=== PATIENT | male | born 1965 | race Caucasian/White ===

== ENCOUNTER → 2017-06-07 | Outpatient (CLI) | payer BC ==
--- NOTE | 2017-06-07 11:31 | Diagnostic Imaging Report ---
TECHNIQUE: Magnetic resonance imaging of the RIGHT SHOULDER was performed WITHOUT injected contrast. COMPARISON: None available. HISTORY: Right shoulder pain FINDINGS: MUSCLES AND TENDONS: Rotator Cuff: Tendons: Supraspinatus: Intact Infraspinatus: Intact Teres Minor: Intact Subscapularis: Intact Muscles: No focal muscle atrophy. Biceps Tendon: The long head of the biceps tendon is intact and within the intertubercular groove. GLENOHUMERAL JOINT: Glenoid Labrum: Superior and posterior labral fraying. Articular Cartilage: Partial thickness cartilage loss ACROMION: Mild hypertrophic degenerative changes of the acromioclavicular joint. The acromion is unremarkable. BONE: No specific evidence of a focal or infiltrative bone marrow replacing abnormality. No acute fracture. SOFT TISSUES: 1.8 cm subcutaneous cyst anterior superior shoulder. IMPRESSION: Intact rotator cuff without tear. Superior and posterior labral fraying. Signed by: Dr. Gumaro Navarrete M.D. on 06/07/2017 11:27 AM
== END ==
LOC: MRI 09:53
PROVIDERS: ATTEND Internal Medicine
DX: M75.101 Unspecified rotator cuff tear or rupture of right shoulder, not specified as traumatic (principal)

== ENCOUNTER → 2018-04-06 | Outpatient (CLI) | payer BC ==
--- NOTE | 2018-04-09 10:15 | Diagnostic Imaging Report ---
TECHNIQUE: Magnetic resonance imaging of the LEFT HAND and WRIST were separately performed WITHOUT injected contrast. HISTORY: Pain, shooting pain, hands to elbows for months COMPARISON: None available FINDINGS: HAND: Bones: No acute fracture. Mild chronic cystic changes at the radial side of the head of the third metacarpal bone, underlying the insertion of the adjacent radial collateral ligament. Joints: No dislocation or effusion. Soft Tissues: Mild thickening of the proximal aspect of the third metacarpophalangeal joint radial collateral ligament, compatible with a remote injury and subsequent scarring. A 0.4 cm (AP) x 0.8 cm (ML) x 0.7 cm (CC) fluid sensitive hyperintense and fat sensitive isointense focus along the volar aspect of the hypothenar eminence muscles (series 10 image 24), enhancement characteristics cannot be assessed. WRIST: Ligaments and tendons: The flexor and extensor tendons show normal signal intensity and configuration. Mild degenerative changes of the scapholunate ligament and the volar peripheral fibers of the triangular fibrocartilage complex, but there are visible intact fibers of both without widening of the scapholunate or lunotriquetral intervals. Bone and bone marrow: Subchondral bone marrow edema and cystic changes about the first carpometacarpal joint. Mild radial subluxation of the base of the first metacarpal phalangeal joint. Articular cartilage: Full-thickness erosions of the first carpometacarpal joint with synovitis in the small effusion. A 5 mm ossific intra-articular fragment at the volar aspect of the joint. Soft tissues: No abnormalities are seen in region of median, ulnar and radial nerves. IMPRESSION: 1. Severe osteoarthrosis of the first carpometacarpal joint. 2. A subcentimeter nonspecific soft tissue mass within the adipose tissue hypothenar eminence of the hand, this may reflect a small neurogenic tumor, vascular malformation, or venous varix. This may be an incidental finding given the provided history. If warranted, a follow-up MRI of the hand with and without contrast would further characterize if this is a cystic or solid lesion; however, the small size may ultimately prevent definitive imaging characterization. Signed by: Dr. Milton Candelaria D.O., M.M.M. on 04/09/2018 10:11 AM
== END ==
LOC: MRI 14:10
PROVIDERS: ATTEND Plastic Surgery
DX: M25.542 Pain in joints of left hand (principal); M25.541 Pain in joints of right hand; M25.532 Pain in left wrist; M25.531 Pain in right wrist

== ENCOUNTER → 2018-04-12 | Outpatient (CLI) | payer BC ==
--- NOTE | 2018-04-13 08:27 | Diagnostic Imaging Report ---
Right hand MRI without contrast. History: And pain. Decreased range of motion. Arthritis. Comparison: None Technique: Multiplanar multisequence MRI of the right hand without contrast FINDINGS: HAND: Bones: No acute fracture. Mild chronic cystic changes at the radial side of the head of the third metacarpal bone, underlying the insertion of the adjacent radial collateral ligament. This is best seen on series 4 image 28 through 30. Joints: No dislocation or effusion. Moderate scattered degenerative change most pronounced at the first carpal/metacarpal articulation. Soft Tissues: Mild thickening of the proximal aspect of the third metacarpophalangeal joint radial collateral ligament, compatible with a remote injury and subsequent scarring. No ligamentous or tendon tear is seen. The visualized neurovascular bundles are intact. The visualized muscles are normal in size, signal intensity and morphology. IMPRESSION: Moderate osteoarthrosis of the first carpometacarpal joint. Signed by: Dr. Robert Bean M.D. on 04/13/2018 8:23 AM
== END ==
LOC: MRI 14:54
PROVIDERS: ATTEND Plastic Surgery
DX: M79.642 Pain in left hand (principal); M79.641 Pain in right hand

== ENCOUNTER → 2021-11-23 | Outpatient (CLI) | payer BC | LOC: US 09:28 | PROVIDERS: ATTEND Internal Medicine | DX: R10.10 Upper abdominal pain, unspecified (principal); K76.0 Fatty (change of) liver, not elsewhere classified | CPT/HCPCS: 76700 ==